=== PATIENT | female | born 1965 | race Two or more races ===

== ENCOUNTER 2025-04-25 08:50 | Emergency (ER) | payer OTHER ==
[~2025-04-25] VITALS: Ht 167.6 cm; Wt 77.1 kg
[2025-04-25 09:40] VITALS: BP 95/57; O2SAT 98
[2025-04-25] MEDS ORDERED: ONDANSETRON HCL 2 MG/ML VIAL IV STA (10:08)
[2025-04-25] MEDS ORDERED: FAMOTIDINE/PF 20 MG/2 ML VIAL IV STA (10:08)
[2025-04-25] MEDS ORDERED: 0.9 % SODIUM CHLORIDE 1,000 ML IV STA (10:08)
[2025-04-25] MEDS ORDERED: DEXAMETHASONE SODIUM PHOSPHATE 4 MG/ML VIAL ONE (10:10)
[2025-04-25] MEDS ORDERED: ONDANSETRON HCL 2 MG/ML VIAL ONE (10:10)
[2025-04-25] MEDS ORDERED: FAMOTIDINE/PF 20 MG/2 ML VIAL ONE (10:10)
[2025-04-25] MEDS ORDERED: DEXAMETHASONE SODIUM PHOSPHATE 4 MG/ML VIAL IV ONE (10:15)
[2025-04-25 10:32] LABS: BASO % 0.5 % (0.1-1.2); EOS # 0.37 (0.04-0.54); EOS % 5.0 % (0.7-7.0); LYMPH # 3.70 (1.18-3.74); LYMPH % 50.2 % (19.3-53.1); MEAN PLATELET VOLUME 9.70 fl (9.4-12.4); MONO # 0.45 (0.24-0.82); MONO % 6.1 % (4.7-12.5); NEUT # 2.79 (1.56-6.13); NEUT % 37.9 % (34.0-71.1); RED CELL DISTRIBUTION WIDTH 13.8 % (11.6-14.4)
[2025-04-25 10:37] LABS: ERYTHROCYTE SEDIMENTATION RATE 16 mm/hr (0-30)
[2025-04-25 10:59] LABS: INR 1.14
[2025-04-25 11:02] LABS: BUN CREA RATIO 19.0 (7.0-25.0); CREATININE SERUM 0.64 mg/dL (0.55-1.02); GFR 94.34; GLUCOSE FASTING 81.0 mg/dL (65-100); OSMOLALITY SERUM 282.0 MOSM/KG (275-295)
[2025-04-25 11:20] LABS: URINE APPEARANCE Clear; URINE BILIRRUBIN Negative (NEGATIVE); URINE BLOOD Small; URINE COLOR Yellow; URINE GLUCOSE Negative (NEGATIVE); URINE KETONE Negative (NEGATIVE); URINE LEUKOCYTE Trace; URINE NITRATE Negative; URINE PROTEIN Negative (NEGATIVE); URINE UROBILINOGEN 0.2 E.U./dl
[2025-04-25 11:21] LABS: URINE BACTERIA 56.4 uL (0.0-1933); URINE EPITHELIAL CELLS 2.4 uL (0.0-38.8); URINE RBC 16.2 uL (0.0-20.8); URINE WBC 6.2 uL (0.0-23.2)
[2025-04-25 11:22] LABS: URINE CAST 0.00 uL (0.0-1.40)
== END 2025-04-25 12:33 | disposition home or self-care (01) ==
LOC: ER 08:51
PROVIDERS: General Practice
DX: R42 Dizziness and giddiness (principal); R07.89 Other chest pain